=== PATIENT | female | born 1980 | race Caucasian/White ===

== ENCOUNTER 2018-06-16 10:37 | Observation (INO) | payer OTHER ==
[2018-06-16] MEDS ORDERED: KETOROLAC 15 MG/1 ML SDV IVP ONE (11:24)
[2018-06-16] MEDS ORDERED: DIAZEPAM 5 MG/ML 1 ML SYR IVP ONE (11:24)
--- NOTE | 2018-06-16 11:26 | EDPHY ---
H & P Stated Complaint: MRI FRIDAY/HERNIATED DISC/PAIN UNMANAGEABLE Time Seen by Provider: 06/16/18 11:05 HPI/ROS: CHIEF COMPLAINT: Intractable low back pain HISTORY OF PRESENT ILLNESS: 37-year-old female in the ER complaining of intractable low back pain. The patient describes back pain for the past several months has been followed at the [facility] with physical therapy, analgesia. Positive bilateral lower extremity radicular pain left greater than right. The pain became exacerbated approximately 1 week ago, she was seen again at the [facility], she has been on a course of Flexeril, prednisone which has not been alleviating her symptoms. 4 days ago the patient had an outpatient MRI at the [facility] showing a large disc protrusion at L4-L5. She has initial intake appointment tomorrow with Dr. Ruffin however the pain was too severe to withstand at home and therefore comes to the ER for evaluation. PRIMARY CARE PROVIDER: REVIEW OF SYSTEMS: A ten point review of systems was performed and is negative with the exception of the items mentioned in the HPI PAST MEDICAL & SURGICAL HISTORY: Recent diagnosis of L4-5 disc herniation with protrusion SOCIAL HISTORY: Nonsmoker PHYSICAL EXAM (Prior to examination, patient consented to physical exam, hands were washed and my usual and customary physical exam procedures followed) 1) GENERAL: Well-developed, well-nourished, alert and oriented. Appears uncomfortable, laying supine, hesitant to move secondary to pain 2) HEAD: Normocephalic, atraumatic 3) HEENT: Pupils equal, round, reactive to light bilaterally. Sclera anicteric. Nasopharynx, oropharynx, clear, no lesions. 4) NECK: Full range of motion, no meningeal signs. 5) LUNGS: Clear auscultation bilaterally, no wheezes, no rhonchi, no retractions. 6) HEART: Regular rate and rhythm, no murmur, no heave, no gallop. 7) ABDOMEN: No guarding, no rebound, no focal tenderness, negative McBurney's, negative Arreola's, negative Rovsing's, negative peritoneal sign, 8) MUSCULOSKELETAL: Moving all extremities, no focal areas of tenderness, no obvious trauma. No peripheral edema or discoloration. 9) BACK: tender to palpation paraspinous muscle. No CVA tenderness, no midline vertebral tenderness, no fluctuance, no step-off, no obvious trauma, no visual or palpable abnormality. Patella, Achilles reflexes intact to bilateral strength 5/5. positive straight leg lift test, right lower extremity approximately 45 degrees, left lower extremity approximately 20 degrees. 10) SKIN: No rash, no petechiae. 11) NEURO: Awake, alert, and oriented to person, place and time. Answers questions appropriately. There were no obvious focal neurologic abnormalities. No cerebellar dysfunction. Upper and lower extremities bilaterally with strength 5 / 5, reflexes 2+.. DIFFERENTIAL DIAGNOSIS: In no particular order, including but not limited to, fracture, sprain/strain, cauda equina, spinal infectious etiology. - Personal History LMP (Females 10-55): Now Current Tetanus Diphtheria and Acellular Pertussis (TDAP): Unsure - Medical/Surgical History Hx Asthma: No Hx Chronic Respiratory Disease: No Hx Diabetes: No Hx Cardiac Disease: No Hx Renal Disease: No Hx Cirrhosis: No Hx Alcoholism: No Hx HIV/AIDS: No Hx Splenectomy or Spleen Trauma: No Other PMH: HERNIATED DISC - Social History Smoking Status: Never smoked Constitutional: Initial Vital Signs Temperature (C) 37.1 C 06/16/18 10:48 Heart Rate 77 06/16/18 10:48 Respiratory Rate 18 06/16/18 10:48 Blood Pressure 98/53 L 06/16/18 10:48 O2 Sat (%) 96 06/16/18 10:48 O2 Delivery Mode Room Air Allergies/Adverse Reactions: No Known Allergies Allergy (Verified 06/16/18 13:30) Home Medications: Medication Instructions Recorded Acetaminophen [Tylenol 325mg (*)] 325 mg PO DAILY PRN 06/16/18 Carboxymethylcellulose 1% [Refresh 1 drop EACHEYE DAILY PRN 06/16/18 Celluvisc (*)] Cyclobenzaprine [Flexeril 10 MG 10 mg PO TID PRN 06/16/18 (*)] predniSONE 20 mg PO AD 06/16/18 Medical Decision Making ED Course/Re-evaluation: 11:28 a.m.: The patient's outpatient MRI were uploaded to the PACS system. I reviewed the report interpreted by Dr. Zackary Wills showing a "large extruded free fragment disc herniation L4-5 contributing to marked acquired central canal stenosis than left lateral recess stenosis" 12:10 p.m.: ARELI Rouse in the ER to evaluate patient, will plan on admitting to Dr. Ruffin for intractable low back pain. I saw this patient independently based on established practice protocols. Care of patient under supervision of primary Supervising physician Dr Pike with whom I discussed case. - Data Points Laboratory Results: Laboratory Results 06/16/18 11:28 06/16/18 11:28 06/16/18 06/16/18 06/16/18 11:28 11:28 11:28 WBC 9.65 10^3/uL H 10^3/uL (3.80-9.50) RBC 4.78 10^6/uL 10^6/uL (4.18-5.33) Hgb 14.2 g/dL g/dL (12.6-16.3) Hct 42.3 % % (38.0-47.0) MCV 88.5 fL fL (81.5-99.8) MCH 29.7 pg pg (27.9-34.1) MCHC 33.6 g/dL g/dL (32.4-36.7) RDW 12.9 % % (11.5-15.2) Plt Count 147 10^3/uL L 10^3/uL (150-400) MPV 13.2 fL H fL (8.7-11.7) Neut % (Auto) 82.3 % H % (39.3-74.2) Lymph % (Auto) 11.8 % L % (15.0-45.0) Haines % (Auto) 5.3 % % (4.5-13.0) Eos % (Auto) 0.1 % L % (0.6-7.6) Baso % (Auto) 0.2 % L % (0.3-1.7) Nucleat RBC Rel Count 0.0 % % (0.0-0.2) Absolute Neuts (auto) 7.94 10^3/uL H 10^3/uL (1.70-6.50) Absolute Lymphs (auto) 1.14 10^3/uL 10^3/uL (1.00-3.00) Absolute Monos (auto) 0.51 10^3/uL 10^3/uL (0.30-0.80) Absolute Eos (auto) 0.01 10^3/uL L 10^3/uL (0.03-0.40) Absolute Basos (auto) 0.02 10^3/uL 10^3/uL (0.02-0.10) Absolute Nucleated RBC 0.00 10^3/uL 10^3/uL (0-0.01) Immature Gran % 0.3 % % (0.0-1.1) Immature Gran # 0.03 10^3/uL 10^3/uL (0.00-0.10) Sodium 139 mEq/L mEq/L (135-145) Potassium 3.8 mEq/L mEq/L (3.3-5.0) Chloride 109 mEq/L mEq/L (97-110) Carbon Dioxide 24 mEq/l mEq/l (22-31) Anion Gap 6 mEq/L L mEq/L (8-16) BUN 16 mg/dL mg/dL (7-23) Creatinine 0.8 mg/dL mg/dL (0.6-1.0) Estimated GFR > 60 Glucose 103 mg/dL H mg/dL (70-100) Calcium 9.1 mg/dL mg/dL (8.5-10.4) Beta HCG, Qual NEGATIVE Medications Given: Discontinued Medications Diazepam (Valium) 5 mg IVP EDNOW ONE Stop: 06/16/18 11:25 Last Admin: 06/16/18 11:37 Dose: 5 mg Ketorolac Tromethamine (Toradol) 15 mg IVP EDNOW ONE Stop: 06/16/18 11:25 Last Admin: 06/16/18 11:36 Dose: 15 mg Departure - Departure Disposition: [facility] Acute Clinical Impression: Intractable low back pain, Lumbar disc herniation Condition: Fair
[2018-06-16 12:10] LABS: PLATELET COUNT 147 10^3/uL (150-400)
[2018-06-16] MEDS ORDERED: oxyCODONE IR 5 MG TAB PO PRN ×2 (12:27→18:17)
[2018-06-16] MEDS ORDERED: morphINE PCA 30 MG/30 ML PCA IV PRN (12:27)
[2018-06-16] MEDS ORDERED: LACTULOSE 20 GM/30 ML UDCUP PO PRN ×2 (12:27→18:20)
[2018-06-16] MEDS ORDERED: BISACODYL 10 MG SUPP PR PRN ×2 (12:27→18:20)
[2018-06-16] MEDS ORDERED: diphenhydrAMINE 25 MG CAP PO PRN ×2 (12:27→18:20)
[2018-06-16] MEDS ORDERED: ACETAMINOPHEN 325 MG TAB PO PRN (12:27)
[2018-06-16] MEDS ORDERED: POLYETHYLENE GLYCOL 3350 17 GM PKT PO PRN ×2 (12:27→18:20)
[2018-06-16] MEDS ORDERED: MAGNESIUM HYDROXIDE 30 ML UDCUP PO PRN ×2 (12:27→18:20)
[2018-06-16] MEDS ORDERED: ONDANSETRON DISINTEGRATING 4 MG TAB PO PRN (12:27)
[2018-06-16] MEDS ORDERED: NALOXONE HCL 0.4 MG/ML INJ IVP PRN ×2 (12:27→18:17)
[2018-06-16] MEDS ORDERED: ONDANSETRON 4 MG/2 ML VIAL IVP PRN ×3 (12:27→18:20)
[2018-06-16] MEDS ORDERED: NS 1,000 ML IV SCH (12:30)
[2018-06-16] MEDS ORDERED: ceFAZolin 2 GM/DEXTROSE 100 ML IV ONE (12:35)
--- NOTE | 2018-06-16 13:03 | GHP ---
[f rep st] HISTORY AND PHYSICAL DATE OF ADMISSION: 06/16/2018 CHIEF COMPLAINT: Intractable low back pain and left leg pain. History of present illness: Ms. Vasques is a pleasant healthy 37-year-old female who reports 3 months of back and left leg pain for which she has sought treatment for from [facility]. She was prescribed physical therapy which did not help her symptoms and she was only able to tolerate 2 appointments. She returned recently to the [facility] and was given a Medrol Dosepak as well as Flexeril and underwent an MRI of the lumbar spine on 06/13/2018. This demonstrated a large L4-5 disk herniation causing severe central canal and bilateral lateral recess stenosis. The patient states that over the past 1 week, her pain has become gradually worse to the point of severe pain today, prompting her to come to the emergency department for pain control. On arrival to the ED, she reported 9/10 back and left leg pain with severe pain localized to the left foot. She denies any bowel or bladder incontinence or weakness in her legs. She notes that she has numbness in both of her feet, left greater than right. The patient was slated to see Dr. Ruffin in his clinic tomorrow. However, her pain was too severe. ALLERGIES: No known drug allergies. ROS: Negative other than what is mentioned in the HPI. CURRENT MEDICATIONS: Medrol Dosepak with 2 days left and Tylenol as needed, Flexeril as needed. MEDICAL HISTORY: None. SURGICAL HISTORY: None FAMILY HISTORY: non contributory SOCIAL HISTORY: The patient is a 37-year-old single female who drinks 2-5 alcoholic beverages a week. She does not smoke. She denies use of drugs. PHYSICAL EXAM: GENERAL: Pleasant healthy-appearing 37-year-old female in no apparent distress. HEAD, EARS, NOSE, THROAT: Within normal limits. EXTREMITIES: Within normal limits. NEUROLOGIC: Patient is awake, alert and oriented x4. Cranial nerves 2-12 are intact to gross examination. Speech is fluent. Tongue is midline. Spinal accessory muscles are intact. She has equal and symmetric strength of the bilateral upper extremities in all muscle groups. She has full strength in all muscle groups of the bilateral lower extremities, with the exception of 4/5 strength in the left extensor hallucis longus. Reflexes are 1+/4 bilateral biceps, brachialis, and patellar tendons. There is no Alysha and no clonus. She has a positive left straight leg raise test. LABORATORY STUDIES: I did review white blood cell count 9.65, hemoglobin 14.2, hematocrit 42.3, platelets are 147,000. Sodium is 139, potassium 3.8, chloride 109, carbon dioxide 24, BUN 16, creatinine 0.8. IMAGING PROCEDURE: MRI of the lumbar spine performed at [facility] on 06/13/2018 was reviewed and demonstrates a large extruded free fragment disk herniation at the L4-5 level contributing to marked central canal and left lateral recess stenosis with mild degenerative changes at L2-3, L3-4, and L5-S1. IMPRESSION: A 37-year-old female with a 3-month history of low back pain and left leg pain whose pain increased in severity over the past week. Her symptoms are likely related to her large L4-5 extruded free fragment disk herniation causing severe central canal and left lateral recess stenosis. The patient is not having any bowel or bladder changes or leg weakness, other than left EHL weakness at 4/5. Her symptoms have failed to improve with physical therapy, oral steroids, and muscle relaxers. At this point, the patient is a candidate for surgical intervention, which would be an L4-5 microdiskectomy. PLAN: All above issues were discussed with the patient in detail and discussed with Dr. Ruffin. At this time, the patient is willing to proceed with surgery. She will be added on to Dr. Ruffin's schedule today. NEUROSURGERY ATTENDING NOTE I met with the patient and her family. Reviewed her images and discussed the treatment options and risk and benefits of all. She has progressive worsening symptoms, including weakness. She has a large leftward L4/5 disc herniation with severe spinal stenosis. She would like to proceed with surgical intervention. I think given the size of her disc herniation and imaging findings and clinical examination that surgery is reasonable. She will be taken today for surgery. /[id number]/MODL MTDD
[2018-06-16] MEDS ORDERED: LR 1,000 ML IV ONE (14:18)
[2018-06-16] MEDS ORDERED: BUPIVACAINE 0.25% 30 ML SDV ONE (15:01)
[2018-06-16] MEDS ORDERED: THROMBIN (BOVINE) 20,000 UNIT VIAL TP ONE (15:01)
[2018-06-16] MEDS ORDERED: CHLORHEXIDINE GLUC HIBICLENS 118 ML BTL TP ONE (15:01)
[2018-06-16] MEDS ORDERED: BACITRACIN 50,000 UNITS/10 ML SYR IRR ONE (15:02)
[2018-06-16] MEDS ORDERED: EPINEPHrine 1 MG/ML INJ ONE (15:02)
--- NOTE | 2018-06-16 15:15 | PDHPUP ---
History & Physical Update H&P update statement: This history and physical update is based on an assessment of the patient which was completed after admission or registration (within 24 hours), but prior to the surgery/procedure. H&P update: H&P reviewed & patient examined, no change in patient's condition since H&P completed H&P changes: I discussed the risks/benefits of surgery with the patient and written informed consent was obtained to proceed with left vs bilateral L45 hemilaminectomy with microdiscectomy. Patient has been seen by Dr Ruffin as well and surgical site marked. All questions answered and patient was in agreement and understanding of the plan.
--- NOTE | 2018-06-16 15:28 | PDANEPAE ---
ANE History of Present Illness here for L4-54 microdiscectomy ANE Past Medical History - Cardiovascular History Hx Hypertension: No Hx Arrhythmias: No Hx Chest Pain: No Hx Coronary Artery / Peripheral Vascular Disease: No Hx CHF / Valvular Disease: No - Pulmonary History Hx Oxygen in Use at Home: No Hx Sleep Apnea: No - Endocrine History Hx Diabetes: No ANE Review of Systems Review of Systems: - Exercise capacity Exercise capacity: >=4 METS ANE Patient History - Allergies Allergies/Adverse Reactions: No Known Allergies Allergy (Verified 06/16/18 13:30) - Home Medications Home Medications: Acetaminophen [Tylenol 325mg (*)] 325 mg PO DAILY PRN 06/16/18 [Last Taken 06/15] Carboxymethylcellulose 1% [Refresh Celluvisc (*)] 1 drop EACHEYE DAILY PRN 06/16 [Last Taken Unknown] Cyclobenzaprine [Flexeril 10 MG (*)] 10 mg PO TID PRN 06/16/18 [Last Taken 06/15 21:00] predniSONE 20 mg PO AD 06/16/18 [Last Taken 06/16/18] - NPO status NPO Since - Liquids (Date): 06/16/18 NPO Since - Liquids (Time): 10:00 NPO Since - Solids (Date): 06/16/18 NPO Since - Solids (Time): 08:00 - Anes Hx Anes Hx: no prior problems - Smoking Hx Smoking Status: Never smoked - Alcohol Use Alcohol Use: Rarely - Family Anes Hx Family Anes Hx: none ANE Labs/Vital Signs - Labs Result Diagrams: 06/16/18 11:28 06/16/18 11:28 - Vital Signs Blood Pressure: 104/65 Heart Rate: 62 Respiratory Rate: 16 O2 Sat (%): 96 Height: 177.8 cm Weight: 70.307 kg ANE Physical Exam - Airway Neck exam: FROM Mallampati Score: Class 2 Mouth exam: normal dental/mouth exam - Pulmonary Pulmonary: no respiratory distress, clear to auscultation - Cardiovascular Cardiovascular: regular rate and rhythym, no murmur, rub, or gallop - ASA Status ASA Status: I ANE Anesthesia Plan Anesthesia Plan: general endotracheal anesthesia Total IV Anesthesia: Yes
[2018-06-16] MEDS ORDERED: MIDAZOLAM 2 MG/2 ML VIAL IVP ONE (15:29)
[2018-06-16] MEDS ORDERED: REMIFENTANIL HCL 1 MG VIAL ONE (15:36)
[2018-06-16] MEDS ORDERED: fentaNYL 100 MCG/2 ML INJ ONE ×2 (15:36→18:08)
[2018-06-16] MEDS ORDERED: PROPOFOL/EMULSION 500 MG/50 ML BOTTLE IV ONE (15:36)
[2018-06-16] MEDS ORDERED: PROPOFOL 200 MG/20 ML VIAL ONE (15:36)
[2018-06-16] MEDS ORDERED: LIDOCAINE 2% 100 MG/5 ML SYR ONE (15:44)
[2018-06-16] MEDS ORDERED: ROCURONIUM 50 MG/5 ML VIAL ONE (15:44)
--- NOTE | 2018-06-16 16:31 | PDHPUP ---
History & Physical Update H&P update statement: This history and physical update is based on an assessment of the patient which was completed after admission or registration (within 24 hours), but prior to the surgery/procedure. H&P update: H&P reviewed & patient examined, no change in patient's condition since H&P completed (Patient seen and all questions answered. Consents signed and site marked. She has a large L4/5 disc herniatin eccentrice to the left side with severe canal stenosis. No right sided symptoms. We will plan for a left sided L4/5 dicectomy with lateral recess decompression (possible bilateral if we cannot get the disc from the left). She is in agreement with the plan.)
[2018-06-16] MEDS ORDERED: DEXAMETHASONE 4 MG/ML VIAL ONE (18:01)
[2018-06-16] MEDS ORDERED: ONDANSETRON 4 MG/2 ML VIAL ONE (18:01)
[2018-06-16] MEDS ORDERED: HYDROmorphONE/DILAUDID 1 MG/ML INJ IVP PRN (18:17)
[2018-06-16] MEDS ORDERED: ACETAMINOPHEN 500 MG TAB PO PRN (18:17)
[2018-06-16] MEDS ORDERED: DIAZEPAM 5 MG/ML 1 ML SYR IVP PRN (18:17)
[2018-06-16] MEDS ORDERED: HYDROCODONE/APAP 5/325 TAB PO PRN (18:17)
[2018-06-16] MEDS ORDERED: PROMETHAZINE HCL 25 MG/ML INJ IVP PRN (18:17)
[2018-06-16] MEDS ORDERED: fentaNYL 100 MCG/2 ML INJ IVP PRN (18:17)
[2018-06-16] MEDS ORDERED: CARBOXYMETHYLCELLULOSE 1% 0.4 ML DROPERETTE EACHEYE PRN (18:19)
--- NOTE | 2018-06-16 18:19 | POSTANESTH ---
Post Anesthetic Evaluation Cardiovascular Status: Normal, Stable, Similar to Pre-Op Cond Respiratory Status: Normal, Stable, Similar to Pre-op Cond. Level of Consciousness/Mental Status: Can Participate in Eval, Alert and Oriented Pain Control: Adequate, Prn Tx Ordered Nausea/Vomiting Control: Adequate, Prn Tx Ordered Complications Possibly Related to Anesthesia: None Noted
--- NOTE | 2018-06-16 18:24 | POSTOPPROG ---
Post Op Note Date of Operation: 06/16/18 Surgeon: Erin Mackenzie Patient Scheduling Coordinator: Blas Mackenzie PA-C Anesthesiologist: Nisha Anesthesia: GET(General Endotracheal) Pre-op Diagnosis: lumbar disc herniation Post-op Diagnosis: same Indication: nerve compression, foot weakness Procedure: left L45 hemilaminectomy and microdiscectomy Findings: Disc herniation free fragment Inf/Abcess present in the surg proc area at time of surgery?: No Depth: Organ Space EBL: Minimal Complications: none Specimen(s): none PA Addendum - Addendum .: S: Pt awake in PACU O: AAOx3 NAD VSS MAEx4 Motor 5/5 BUE/BLE with exception of left EHL 5-/5 (improved from pre op) +LT Incision dressed cdi A: 37 Y/O F S/p left L45 hemilaminectomy and microdiscectomy P: Pain management Spine precautions Advance diet and activity TEDs, SCDs, lovenox 24 hrs post op PT/OT Plan for DC home tomorrow D/w Dr Ruffin
--- NOTE | 2018-06-16 18:36 | GOP ---
[f rep st] OPERATIVE REPORT DATE OF OPERATION: 06/16/2018 SURGEON: Gregory Ruffin MD DISPLAY DEPARTMENT MANAGER: Erin Mackenzie PA-C. ANESTHESIA: General. PREOPERATIVE DIAGNOSIS: 1. Large eccentric left L4-L5 disk herniation with severe stenosis and left lower extremity radiculopathy and weakness. 2. Intractable lower extremity radiculopathy and pain. 3. Treatment refractory to non-operative intervention. POSTOPERATIVE DIAGNOSIS: 1. Large eccentric left L4-L5 disk herniation with severe stenosis and left lower extremity radiculopathy and weakness. 2. Intractable lower extremity radiculopathy and pain. 3. Treatment refractory to non-operative intervention. PROCEDURE PERFORMED: 1. Left-sided L4-L5 hemilaminotomy with mesial facetectomy, lateral recess decompression, and microdiskectomy with spinal cord decompression. 2. Use of intraoperative fluoroscopy, less than 1 hour physician time. 3. Use of neuromonitoring. 4. Use of operating microscope. FINDINGS: arge free fragment of disc material SPECIMENS: The disk material was sent to Pathology for permanent analysis. ESTIMATED BLOOD LOSS: 20 mL. INDICATIONS: The patient is a 37-year-old woman who was scheduled to see me on 06/17/2018. The patient states that she has been having several weeks of radiculopathy but then presented with intractable lower extremity radiculopathy and weakness on the left side. The patient presented to the emergency department, had very large eccentric disk herniation to the left at L4-L5 with severe spinal canal stenosis. She has failed non-operative interventions. After discussion of the risks, benefits, and treatment alternatives, we decided to proceed forth with surgery as described above. DESCRIPTION OF PROCEDURE: The patient was brought to the operating theater and underwent general endotracheal anesthesia without complications. She had Venodynes, CAROLYN hose, and appropriate lines placed by Anesthesia. She was flipped prone onto a José frame, and all bony prominences inspected and padded. The lower lumbar region was prepped and draped in the usual sterile surgical fashion. A time-out was completed per protocol and the patient received antibiotics within 1 hour of incision. Using lateral fluoroscopy and a spinal needle, we picked our entry point to the L4-5 level. This was marked in the midline, and the incision infiltrated with Marcaine with epinephrine. The incision was taken down with the scalpel blade, and then using monopolar, taken down the midline through the lumbodorsal fascia to the left side of the L4-L5 interlaminar space. Deep retractors were placed to maintain exposure. We confirmed our level using lateral fluoroscopy. The microscope was brought into the field to assist with microscopic dissection and to maintain illumination and magnification. Using a combination of bur tip on the drill bit and Kerrison punches, we completed a left-sided L4-5 hemilaminotomy with mesial facetectomy and lateral recess decompression. We retracted the thecal sac medially, and she had a very large ventral disk causing severe compression. We incised the disc with 11 blade and pulled out a very large, approximately 3 cm disk fragment. We pulled out several more small free fragments using the angled nerve hooks and micropituitaries. Once we felt that everything was well decompressed, I did not feel it was necessary to go to the right side, given that she only left-sided symptoms and we had achieved a good decompression and had removed a very large free fragment of disk. At this point, we obtained hemostasis with the bipolar. The wound was irrigated copiously with bacitracin irrigation. We then closed the wound in multiple layers using Vicryl sutures for the deep layers and Dermabond for the skin. The patient's wounds were dressed sterilely. She was then flipped supine onto the transfer cart. She was awakened, extubated, taken to recovery room in stable condition. There were no complications and no noted changes on neuromonitoring throughout the procedure. COMPLICATIONS: None. /[id number]/MODL MTDD
[2018-06-16] MEDS ORDERED: DIAZEPAM 5 MG/ML 1 ML SYR ONE (18:55)
[2018-06-16] MEDS ORDERED: HYDROmorphONE/DILAUDID 1 MG/ML INJ ONE (19:02)
[2018-06-16] MEDS: HYDROmorphONE/DILAUDID 1 MG/ML INJ IVP PRN ×2 (19:04→19:11)
[2018-06-16] MEDS: SENNOSIDES/DOCUSATE SODIUM TAB PO SCH (20:21)
[2018-06-16] MEDS: METHOCARBAMOL 750 MG TAB PO PRN (20:21)
[2018-06-16] MEDS: HYDROCODONE/APAP 5/325 TAB PO PRN (20:21)
[2018-06-16] MEDS: FAMOTIDINE 20 MG TAB PO SCH (20:21)
[2018-06-16] MEDS: ONDANSETRON DISINTEGRATING 4 MG TAB PO PRN (20:30)
[2018-06-16] MEDS ORDERED: SENNOSIDES/DOCUSATE SODIUM TAB PO SCH (21:00)
[2018-06-16] MEDS: ACETAMINOPHEN 500 MG TAB PO SCH (22:35)
[2018-06-17] MEDS: ONDANSETRON DISINTEGRATING 4 MG TAB PO PRN (02:54)
[2018-06-17] MEDS: HYDROCODONE/APAP 5/325 TAB PO PRN ×2 (02:54→08:43)
[2018-06-17] MEDS: METHOCARBAMOL 750 MG TAB PO PRN ×2 (02:55→08:43)
[2018-06-17] MEDS: ACETAMINOPHEN 500 MG TAB PO SCH (05:44)
--- NOTE | 2018-06-17 08:07 | NEUSURGPN ---
Date of Surgery: 06/16/18 Post Op Day: 1 Assessment/Plan: Assessment: 37 y/o F S/P left L45 hemilaminectomy and microdiscectomy POD #1 Plan: -Pain management-doing well with current plan -CDI -pt states that she is much better -plan for dc today once cleared by PT/OT and RN -advance diet and activity -no bending or twisting -TEDs, SCDs -continue with PT/OT -plan for DC home today -d/w Dr Ruffin Subjective: Awake and alert. NAD. Eating/drinking and voiding. No f/c/n/v/d. Objective: AAOx3, PERRLA/EOMI no droop CN 2-12 grossly intact NAD AFVSS MAEx4 Motor 5/5 BUE/BLE with exception of left EHL 5-/5 (improved from pre op) +LT Incision dressed cdi Neuro Check Frequency: per routine Urinary Catheter in Place: No - Physician Discussed Patient with : [facility] Physical Exam - Vitals, I&O, Labs I and O 06/16/18 06/17/18 06/18/18 05:59 05:59 05:59 Intake Total 2330 Output Total 20 Balance 2310 Weight 70.307 kg Intake: Oral (ml) 1030 IV Intake (ml) 800 IV Infused (ml) 500 Output: Estimated Blood Loss (ml) 20 Other: Number of Voids 0 Toilet 1 Vital Signs Temp Pulse Resp BP Pulse Ox 36.5 C 57 L 16 97/47 L 95 06/17/18 04:00 06/17/18 04:00 06/17/18 04:00 06/17/18 04:00 06/17/18 04:00 ICD10 Worksheet Patient Problems: Problems Problem Status Onset Intractable low back pain Acute Lumbar disc herniation Acute
[2018-06-17 08:09] VITALS: BP 96/55
[2018-06-17] MEDS: FAMOTIDINE 20 MG TAB PO SCH (08:43)
[2018-06-17] MEDS: SENNOSIDES/DOCUSATE SODIUM TAB PO SCH (08:44)
--- NOTE | 2018-06-17 13:46 | ASMTLACE ---
[facility] Length of stay for Answers: 2 days current admission Acuity / Level of Answers: No Care: Did the patient have an inpatient admission? # of Emergency department Answers: 1-2 visits in the last 6 months Score: 3 Date Signed: 06/17/2018 01:46 PM Electronically Signed By:BRENDEN Sanchez
--- NOTE | 2018-06-17 13:47 | ASMTCMCOM ---
CM Note CM Note Notes: PT rec home. Pt medically stable for d/c, no CM d/c needs identified. Date Signed: 06/17/2018 01:46 PM Electronically Signed By:BRENDEN Sanchez
[2018-06-17] MEDS ORDERED: ENOXAPARIN 40 MG/0.4 ML SYR SC SCH (18:00)
== END 2018-06-17 12:11 | disposition home or self-care (01) ==
LOC: F3N 19:38
PROVIDERS: ADMIT Neurological Surgery; ATTEND Neurological Surgery
PROC: 00NY0ZZ Release Lumbar Spinal Cord, Open Approach (ICD-10-PCS; principal; 2018-06-16 15:30)
PROC: 0SB20ZZ Excision of Lumbar Vertebral Disc, Open Approach (ICD-10-PCS; principal; 2018-06-16 15:30)
DX: M51.26 Other intervertebral disc displacement, lumbar region (principal); M48.062 Spinal stenosis, lumbar region with neurogenic claudication
CPT/HCPCS: 63030; 76001; 96374; 96375; 97161; 97165; 99285; G0378; J0171; J0690; J1100; J1170; J1885; J2001; J2250; J2405; J2704; J3010; J3360